=== PATIENT | female | born 1960 | race Two or more races ===

== ENCOUNTER 2024-07-03 14:05 | Emergency (ER) | payer MEDICAID, SELFPAY ==
[2024-07-03 14:08] VITALS: BMI 30.9
[2024-07-03 14:21] VITALS: BP 159/66; PULSE 76; RESP 18; TEMP 36.9; O2SAT 99
--- NOTE | 2024-07-03 14:35 | XR_ITS ---
Examination: CTA right lower extremity with intravenous contrast 2-D reconstructions 3-D reconstructions, vascular Date and time of exam: July 03, 2024 at 1658 hours INDICATIONS: Onset discolored right hand and forearm today, clinical diagnosis radial artery occlusion CTDI: vol (mGy) 20.7 DLP: (mGycm) 923 Technique: Multiple axial images right lower extremity 3 mm slice thickness postintravenous administration is 100 cc Isovue-[id number] 2-D sagittal and coronal reconstructions. 3-D angiographic renderings, 3-D volume renderings, 3D post processing, vascular maximum intensity projections obtained. Low dose protocols were performed. One or more of the following dose reduction techniques were used; automated exposure control, adjustment of the mA and/or KV according to patient size, use of iterative reconstruction technique. Findings: Axillary brachial arteries do fill Interosseous branch fills Radial ulnar arteries do fill to the wrist with no thrombus depicted The hand images are significantly degraded by patient motion, no diagnostic visualization of the palmar arch or digital arteries No soft tissue hematoma IMPRESSION: Axillary brachial radial and ulnar arteries appear intact If symptoms progress, recommend short-term follow-up arterial duplex sonography of the right upper extremity arteries
--- NOTE | 2024-07-03 14:37 | EDRME_ITS ---
Rapid Medical Screening Exam FORMERLY [facility], [facility] Arrival date/time: 07/03/24 14:05 64-year-old female with a history of type 2 diabetes presents to the emergency room with a chief complaint of discoloration and pain to the right hand digits 1 2 and 3. Patient states the symptoms have been going on for the last week but the discoloration and pain has progressively gotten worse since this morning. I have greeted and performed a focused initial assessment of this patient. A comprehensive ED assessment and evaluation of the patient, analysis of all test results, and completion of the medical decision making process will be conducted by additional ED providers. Chief Complaint: Hand/Wrist Problems Vital signs: Vital Signs Temperature 98.5 F 07/03/24 14:21 Pulse Rate 76 07/03/24 14:21 Respiratory Rate 18 07/03/24 14:21 Blood Pressure 159/66 H 07/03/24 14:21 Pulse Oximetry (%) 99 07/03/24 14:21 Oxygen Delivery Method Room Air 07/03/24 14:21 Vital signs reviewed by provider: Yes
[2024-07-03 15:45] LABS: Basophils % (Auto) 0 % (0-2.5); Eosinophils # (Auto) 0.2 Thou/mm3 (0.0-0.5); Eosinophils % (Auto) 3 % (0-10); Hematocrit 37.5 % (36.0-46.0); Immature Granulocytes % (Auto) 0 % (0-0); Immature Granulocytes Auto 0.01 Thou/mm3 (0.00-0.00); Lymphocytes # (Auto) 2.6 Thou/mm3 (1.0-4.8); Lymphocytes % (Auto) 33 % (10-50); Mean Corpuscular Hemoglobin 25.3 pg (25.0-35.0); Mean Corpuscular Volume 79 fL (80-100); Monocytes # (Auto) 0.4 Thou/mm3 (0.0-0.8); Monocytes % (Auto) 5 % (0-12); Neutrophils # (Auto) 4.6 Thou/mm3 (1.8-7.7); Neutrophils % (Auto) 59 % (37-80); Nucleated Red Blood Cell % 0 /100 WBC (0); Platelet Count 518 Thou/mm3 (140-440); RDW Standard Deviation 40.2 fL (36.4-46.3); Red Blood Count 4.75 Miln/mm3 (4.00-5.20); White Blood Count 7.9 Thou/mm3 (3.6-11.0)
[2024-07-03 16:10] LABS: Alanine Aminotransferase 15 U/L (10-49); Albumin, Serum 4.3 gm/dL (3.4-4.8); Albumin/Globulin Ratio 1.3 (1.2-2.2); Alkaline Phosphatase 115 U/L (46-116); Anion Gap 7 (7-16); Aspartate Amino Transferase 14 U/L (0-34); BUN/Creatinine Ratio 13 Ratio (12-20); Bilirubin,Total 0.4 mg/dL (0.3-1.2); Blood Urea Nitrogen 12 mg/dL (9-23); Calcium 9.7 mg/dL (8.3-10.6); Calcium (Corrected) 9.7 mg/dL (8.5-10.1); Carbon Dioxide 29.6 mMol/L (20.0-31.0); Chloride 102 mMol/L (98-107); Creatinine (Component) 0.9 mg/dL (0.6-1.3); Estimated Creatinine Clearance 64.4 mL/min (>60); Globulin 3.4 gm/dL (2.3-3.5); Glucose 160 mg/dL (74-106); Osmolality,Calculated 280 (275-295); Potassium 4.2 mMol/L (3.4-5.1); Sodium 139 mMol/L (136-145); Total Protein 7.7 gm/dL (5.7-8.2); eGFR > 60 See Note
[2024-07-03] MEDS: MORPHINE SULF INJ 10 MG/ML VIAL 4 MG IVP (17:54)
[2024-07-03] MEDS: ONDANSETRON INJ 2 MG/ML INJ 2 ML 4 MG IV (17:54)
[2024-07-03 18:25] VITALS: BP 145/69; PULSE 67; RESP 16; O2SAT 100
--- NOTE | 2024-07-03 18:28 | EDNOTE_ITS ---
Upper Extremity Injury RME/HPI General Chief Complaint: Hand/Wrist Problems Stated Complaint: DISCOLORATION TO HANDS Time Seen by Provider: 07/03/24 18:27 Arrival date/time: 07/03/24 14:05 64 year old female present to emergency room with c/o of discoloration of right hand digit 1,2,3 ongoing. Per patient report worsen this morning. LOCATION: hand SEVERITY: Symptoms are described as being severe with limitations on activities of daily living QUALITY: Symptoms are described as being dull or achy CONTEXT: none DURATION/TIMING: The symptoms started approximately worsen today but sx intermittent. ASSOCIATED SYMPTOMS: The patient is unable to identify any other associated symptoms. MODIFYING FACTORS: The patient is unable to identify any alleviating or aggravating symptoms. PERTINENT ROS: no fevers, no headache, no neck or chest pain, no unexplained nausea or vomiting, no focal neurological deficits REVIEW OF SYSTEMS: See History of Present Illness - with the exception of those mentioned in the history of present illness, all other systems reviewed and reported as negative GENERAL: In general the patient is awake, interactive, in an emergency department [facility]. HEAD/EYES/EARS/NOSE/THROAT: normo-cephalic, atraumatic, mucus membranes are moist, anicteric, palpebral conjunctiva is pink, trachea is midline. CARDIOVASCULAR: regular rate and regular rhythm, no murmurs, heart sounds are not distant, strong pulses in all four extremities that are equal and symmetric bilateral upper and lower extremities, normal capillary refill. CHEST/PULMONARY: normal chest rise and fall, good air movement, clear to auscultation bilaterally, normal inspiratory to expiratory ratios without evidence of respiratory distress. NECK: No midline/Paraspinal tenderness, no step off ROM/Strenght intact No Kernig and bruzinski sign. No trauma ABDOMEN: soft, not tender, no masses appreciated BACK: normal range of motion without pain. NEUROLOGICAL: cranio-facial features are symmetric, moves all four extremities equally without obvious limitations or weakness. EXTREMITY: no tenderness to palpation over the long bones or large joints of the bilateral upper and lower extremities, no joint swelling, no joint erythema, no signs of trauma, no unilateral leg swelling and no peripheral edema. SKIN: warm, dry, well-perfused, no jaundice, no rash, no telangiectasias or petechia. PSYCH: calm, cooperative, no evidence of psychosis or agitation RME / HPI RME / HPI narrative: 07/03/24 14:05 64-year-old female with a history of type 2 diabetes presents to the emergency room with a chief complaint of discoloration and pain to the right hand digits 1 2 and 3. Patient states the symptoms have been going on for the last week but the discoloration and pain has progressively gotten worse since this morning. I have greeted and performed a focused initial assessment of this patient. A comprehensive ED assessment and evaluation of the patient, analysis of all test results, and completion of the medical decision making process will be conducted by additional ED providers. Related Data Previous Rx's ?Medication ?Instructions ?Recorded hydrocodone 5 mg-acetaminophen 325 1 tab PO Q8H PRN pa in #14 tabs 07/03/24 mg tablet methylprednisolone 4 mg tablets in 4 mg PO .as directe d #21 tabs 07/03/24 a dose pack (Medrol (Lamine)) Allergies Allergy/AdvReac Type Severity Reaction Status Date / Time Beef Containing Products Allergy Joint Pain Verified 07/03/24 14:07 Pork/Porcine Containing Allergy Verified 07/03/24 14:07 Products Course Course Course Narrative: review labs and CTA: no acute findings, pain is noticable on 1-3 right distal aspect and discoloration noted. nail plate intact. no sign of infection possible raynaud's phenomenon will start on medro dose lamine, pt understand to check blood glucose since it may cause elevation for DM patient. no sign of compartment sydnrome or nec fas. Quality Measures none Orders Category Date Time Status CT Screening NOW Care 07/03/24 14:35 Active Insert IV NOW Care 07/03/24 14:[address] angio UE RT Stat Exams 07/03/24 14:35 Completed CBC Stat Lab 07/03/24 15:29 Completed CMP [Comprehensive Metabolic Panel] Stat Lab 07/03/24 15:29 Completed Morphine Inj Med 07/03/24 14:35 Discontinued 4 mg IVP X1 ONE Ondansetron Inj [Zofran Inj] Med 07/03/24 14:35 Discontinued 4 mg IV X1 ONE predniSONE Med 07/03/24 18:40 Discontinued 20 mg PO X1 ONE Vital Signs Vital signs: Vital Signs Temperature 98.5 F 07/03/24 14:21 Pulse Rate 76 07/03/24 14:21 Respiratory Rate 18 07/03/24 14:21 Blood Pressure 159/66 H 07/03/24 14:21 Pulse Oximetry (%) 99 07/03/24 14:21 Oxygen Delivery Method Room Air 07/03/24 14:21 Extremity Injury Patient data External records reviewed:: None Clinical information provided by:: patient Social determinants that could affect healthcare access:: none Patient has the following chronic illnesses:: DM How is presenting disease/condition affected by chronic disease/condition?: uneffected by Evaluation data The following diagnostics were reviewed and interpreted by me:: lab results and radiology exam(s) Lab and/or radiology exams considered but not ordered:: none Interpretation Summary: CT: Axillary brachial arteries do fill Interosseous branch fills Radial ulnar arteries do fill to the wrist with no thrombus depicted The hand images are significantly degraded by patient motion, no diagnostic visualization of the palmar arch or digital arteries No soft tissue hematoma IMPRESSION: Axillary brachial radial and ulnar arteries appear intact If symptoms progress, recommend short-term follow-up arterial duplex sonography of the right upper extremity arteries cbc/cmp no acute findings Medications / Prescriptions Medications or Prescriptions considered but not ordered:: none Medication administrations:: Medication Administration History Discontinued Medications Morphine Sulfate (Morphine Sulf Inj 10 Mg/Ml Vial) 4 mg IVP X1 ONE Stop: 07/03/24 14:36 Last Admin: 07/03/24 17:54 Dose: 4 mg Documented By: BD Ondansetron HCl (Ondansetron Inj 2 Mg/Ml Inj 2 Ml) 4 mg IV X1 ONE; Protocol Stop: 07/03/24 14:36 Last Admin: 07/03/24 17:54 Dose: 4 mg Documented By: BD Prednisone (Prednisone 20 Mg Tablet) 20 mg PO X1 ONE Stop: 07/03/24 18:41 Last Admin: 07/03/24 18:44 Dose: 20 mg Documented By: BD as stated above Consultations Consultation(s) initiated? (list below): No Diagnosis Upper Extremity Injury Differential Diagnosis: other (raynaud phenomena , blood clot) Most likely diagnosis given after review of the tests above:: finger pain Admission Indicated Admission indicated?: not indicated Admission Request Was there a request for admission?: No Disposition Plan Disposition Plan: Discharge Discharge Attestation Discharge Attestation: The patient and all family members were given an opportunity to ask questions and understood the discharge instructions. Discharge instructions specifically effects, indications for sooner follow up or return to the emergency department, and the expected course of current diagnosis. Patient condition: Stable Discharge Plan Plan Patient Disposition: HOME (Self Care) Prescriptions/Referrals Prescriptions/Med Rec: New methylprednisolone [Medrol (Almine)] 4 mg tablets,dose pack 4 mg PO .as directed Qty: 21 0RF hydrocodone-acetaminophen 5-325 mg tablet 1 tab PO Q8H MDD 3 PRN (Reason: pain) Qty: 14 0RF Referrals: Jackelyn Dye PA-C [Primary Care Provider] - In 1 week Problem List Clinical Impression: Finger pain Patient/Caregiver Discharge Instructions Education Materials: Raynaud Disease Print Language: Faroese Stand Alone Forms: Rachel Award Info., Patient Portal Info Letter
[2024-07-03] MEDS: predniSONE 20 MG TABLET PO (18:44)
== END 2024-07-03 18:52 | disposition home or self-care (01) ==
PROVIDERS: Nurse Practitioner Family; Emergency Provider Emergency Medicine; PCP Physician Assistant
DX: M79.644 Pain in right finger(s) (principal); E11.9 Type 2 diabetes mellitus without complications
CPT/HCPCS: 36415; 73206; 80053; 85025; 96374; 96375; 99285; A4649; J2270; J2405; J7512; Q9967

== ENCOUNTER → 2024-07-12 | Outpatient (CLI) | payer MEDICARE, MEDICAID, SELFPAY ==
--- NOTE | 2024-07-12 13:00 | XR_ITS ---
Examination: Thyroid sonography complete TECHNIQUE: Grayscale sonographic images thyroid lobes are carful analysis Exam date and time: July 12, 2024 1322 hours INDICATIONS: Palpable lump in the neck on clinical examination by provider this week FINDINGS: Right thyroid 4.0 x 1.6 x 1.5 cm Upper pole cyst 3 x 4 mm No solid nodules Left thyroid 3.5 x 1.3 x 1.2 cm Lower pole nodule 7 x 7 x 8 mm IMPRESSION: Lower pole left thyroid nodule as above
--- NOTE | 2024-07-12 13:30 | XR_ITS ---
Examination: Diagnostic digital mammography, unilateral, right Computer aided detection 3-D breast Tomosynthesis, unilateral Date and time of exam: July 12, 2024 1344 hours INDICATIONS: Mammogram November 10, 2023 4 mm focal asymmetry retroareolar region right breast Technique: Nonmagnified MLO, CC views of the right breast have been obtained, reconstructed from 3-D Tomosynthesis images. R2 computer aided detection program utilized for evaluation of suspicious masses and/or abnormal calcifications. 3-D Tomosynthesis images obtained. Findings: Scattered areas of fibroglandular density No suspicious nodule is noted on the spot compression views Impression: BI-RADS category 2: Benign findings Return to yearly follow-up mammography
--- NOTE | 2024-07-12 13:45 | XR_ITS ---
Examination: Bone densitometry Date and time of exam:Every 2024 1314 hours INDICATIONS: Menopause age 44, diabetic Technique: Lumbar spine and hip total bone mineralization values of an calculated. Peak reference and age match control results have been displayed. Findings: Lumbar spine total bone mineralization is0.986 gm/cm2. This is 0.6 standard deviations below peak reference. This is 1.2 standard deviations above age-matched controls. Hip total bone mineralization is 0.861 gm/cm2 This is 0.8 standard deviations below peak reference. This is 0.4 standard deviations above age-matched controls Impression: There is normal mineralization based on lumbar spine measurements. There is osteopenia based on hip measurements
== END | disposition home or self-care (01) ==
PROVIDERS: PCP Nurse Practitioner; Referring Provider Nurse Practitioner; Visit Provider Nurse Practitioner
DX: Z13.820 Encounter for screening for osteoporosis (principal); R92.321 Mammographic fibroglandular density, right breast; M85.80 Other specified disorders of bone density and structure, unspecified site; E04.1 Nontoxic single thyroid nodule
CPT/HCPCS: 76536; 77061; 77065; 77080; G0279

== ENCOUNTER → 2025-01-20 | Outpatient (CLI) | payer OTHER, MEDICAID, SELFPAY ==
--- NOTE | 2025-01-20 15:45 | XR_ITS ---
Examination: MRI of brain without intravenous contrast. MRI brain with intravenous contrast. Date and time of exam:January 20, 2025 1712 hours INDICATIONS: Headaches and dizziness head pressure beginning 6 months ago Technique: Multiple axial and sagittal images of the brain to been obtained. Siemens high-resolution 1.52 Lisa short bore scanner utilized. Sagittal sections, T1 weighted images, TR 500, TE 14, are performed. Axial sections proton-density and T2-weighted images have been obtained. Inversion recovery axial images, TR 9260, TE 111, TR 2500. Diffusion weighted images, axial sections, TR 4800, TE 128, B value 1000. Axial sections, ADC map, TR 4800, TE 128. Axial and coronal images were also obtained post 15 cc gadolinium administered intravenously. Findings:: Enlargement of the sella turcica is not present. The optic chiasm and infundibular stalk are not remarkable. There is no localized enlargement of the medulla or ele. Fourth ventricle and cerebellar tonsils appear normal in position. No subacute area of hemorrhage density is seen. Fourth ventricle is midline. Mass in the cerebellopontine angle region is not evident. 7th and 8th nerve complexes exhibit symmetry Globes are symmetrical Orbital musculature including medial lateral rectus muscles do not exhibit abnormality Increased white matter signal is moderate Effacement of the cortical sulcal markings is not identified. Mass effect upon the ventricular system is not identified. Diffusion-weighted images demonstrate no focus of restricted diffusion Contrast images demonstrate no abnormal enhancement Impression: Negative for acute hemorrhage, mass effect or midline shift No acute infarct Moderate chronic microvascular white matter change No abnormal enhancing cerebellar or cerebral lesions Significant frontal ethmoid maxillary antral sinusitis including acute right maxillary sinusitis
== END | disposition home or self-care (01) ==
LOC: SMRI 15:12
PROVIDERS: PCP Physician Assistant; Referring Provider Physician Assistant; Visit Provider Physician Assistant
DX: R90.82 White matter disease, unspecified (principal)
CPT/HCPCS: 70553; A9577